=== PATIENT | male | born 1975 | race Caucasian/White ===

== ENCOUNTER 2018-02-16 18:10 | Emergency (ER) ==
[2018-02-16 18:15] VITALS: BP 136/79; TEMP 97.9; BMI 34.2
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
[2018-02-16] MEDS: TENIVAC IM ONE (18:39)
== END 2018-02-16 18:55 | disposition home or self-care (01) ==
LOC: ED 18:10
DX: S41.151A Open bite of right upper arm, initial encounter (principal); S61.451A Open bite of right hand, initial encounter; S61.452A Open bite of left hand, initial encounter; W54.0XXA Bitten by dog, initial encounter
CPT/HCPCS: 90471; 90714; 99283